=== PATIENT | male | born 1970 | race Caucasian/White ===

== ENCOUNTER 2021-06-20 11:46 | Emergency (ER) | payer BC, SELFPAY ==
--- NOTE | ~2021-06-20 | XR_ITS ---
EXAMINATION: XR hand RT min 3V DATE: 06/20/2021 12:17 INDICATION: Right hand swelling. TECHNIQUE: 3 views of right hand were obtained. COMPARISON: Right wrist radiographs 10/26/2010 FINDINGS: Bone alignment is normal. No fracture. There is mild osteoarthritis of triscaphe joint, fir st carpometacarpal joint, second metacarpophalangeal joint, and second and third distal interphalange al joints. IMPRESSION: 1. Mild polyarticular osteoarthritis. Reviewed, dictated and finalized at location A. Y OPERATOR
[2021-06-20 11:54] VITALS: BP 150/77; PULSE 78; RESP 16; TEMP 37.1; O2SAT 98
--- NOTE | 2021-06-20 12:03 | ED.SKABFB ---
HPI - Skin/Abscess/Foreign Bdy General Chief complaint: Skin/Abscess/Foreign Body Stated complaint: rt hand swollen Time Seen by Provider: 06/20/21 12:03 Source: patient Mode of arrival: ambulatory Limitations: no limitations History of Present Illness HPI narrative: 50-year-old male with history of psoriatic arthritis presented for complaint of right hand redness, pain, swelling for about 3 days. For approximately 1 to 2 months he has noticed a small bump in the palmar aspect at the second MCP joint, but denies known injury or foreign body. Today he states over the last 3 days has become more swollen and painful, limiting his range of motion, he cannot make a fist. Denies numbness, tingling, weakness of the extremity. Takes Humira [id number] x5 years. complaint: rash Related Data Home Medications Medication Instructions Recorded Confirmed adalimumab [Humira(CF) Pen] 40 mg SUBCUT [id number] 06/20/21 06/20/21 amlodipine 10 mg PO DAILY 06/20/21 06/20/21 quinapril 40 mg PO DAILY 06/20/21 06/20/21 Allergies Allergy/AdvReac Type Severity Reaction Status Date / Time No Known Allergies Allergy Verified 06/20/21 12:04 Review of Systems Review of Systems: CONSTITUTIONAL: Denies body aches, fever, chills, or sweats. EYES: Denies visual changes, redness, or discharge. ENT: Denies rhinorrhea, congestion, sore throat, or otalgia. CARDIOVASCULAR: Denies chest pain, palpitations, or edema. RESPIRATORY: Denies cough or dyspnea. GASTROINTESTINAL: Denies abdominal pain, nausea, vomiting, or diarrhea. GENITOURINARY: Denies dysuria or hematuria. SKIN: rash, itching, wounds. MUSCULOSKELETAL: right hand joint pain, swelling NEUROLOGIC: Denies headache, numbness, tingling, or weakness. PSYCH: Denies depression or anxiety. PMFSH Social History Social History Alcohol intake: current Comments At time of signature, I have reviewed and agree with nursing past medical, surgical, social and family history unless otherwise noted. Please see nursing chart for further information. There is no relevant family history pertinent to the presenting complaint Exam Narrative: GENERAL: Well-appearing, well-nourished, and in no acute distress. HEAD: Normocephalic, atraumatic. EYES: PERRLA, conjunctivae clear, and EOMI. ENT: Mucous membranes moist. Oropharynx without edema, erythema or lesions. NECK: Supple. No lymphadenopathy CHEST: Clear to auscultation. No respiratory distress. HEART: Regular rate and rhythm. SKIN: Warm, dry. erythema and edema to right hand dorsal aspect 2nd MCP joint to 1st MCP joint, mild swelling and erythema to palmar aspect; Point tenderness to 2nd MCP, Decreased ROM to hand, unable to make fist or touch 5th digit to thumb, Sensation and pulse intact, cap refill <3sec; No fluctuance or induration; no rash or lesions to skin surface at site of pain NEURO: Alert and oriented x3. PSYCH: Normal mood and affect Course Course Emergency Course: Patient is aware of diagnosis, understands and agrees to treatment plan. Anticipatory guidance given. Patient agrees to follow-up as directed and is aware of reasons to seek care at the emergency department. Portions of this record may have been created with voice recognition software Level of Care: Express Care Visit Vital Signs Vital signs: Vital Signs Temperature 98.7 F 06/20/21 11:54 Pulse Rate 78 06/20/21 11:54 Respiratory Rate 16 06/20/21 11:54 Blood Pressure 150/77 H 06/20/21 11:54 Pulse Oximetry 98 06/20/21 11:54 Temperature 98.7 F 06/20/21 11:54 Pulse Rate 78 06/20/21 11:54 Respiratory Rate 16 06/20/21 11:54 Blood Pressure 150/77 H 06/20/21 11:54 Pulse Oximetry 98 06/20/21 11:54 Reviewed MDM - Skin/Abscess/Foreign Bdy MDM Narrative Medical decision making narrative: Patient looks well, nontoxic, no neurologic signs or symptoms; no headache, photophobia or neck pain; afebril
--- NOTE | 2021-06-20 12:21 | PC.NURSE ---
PT DECLINED ICE FOR COMFORT
== END 2021-06-20 12:40 | disposition home or self-care (01) ==
PROVIDERS: Emergency Provider Nurse Practitioner Family; PCP Internal Medicine
DX: M25.441 Effusion, right hand (principal); I10 Essential (primary) hypertension; L40.50 Arthropathic psoriasis, unspecified
CPT/HCPCS: 73130; 99203; G0463

== ENCOUNTER 2023-03-26 04:03 | Observation (INO) | payer BC, SELFPAY ==
[2023-03-26] VITALS (14 sets, daily range): BP systolic 119–169; BP diastolic 82–104; PULSE 58–81; RESP 10–20; TEMP 36.3–37; O2SAT 88–98
--- NOTE | ~2023-03-26 | CT_ITS ---
EXAMINATION: CT abdomen pelvis wo con DATE: 03/26/2023 05:10 INDICATION: Right flank pain TECHNIQUE: Computed tomography (CT) of the abdomen and pelvis was performed without intravenous contr ast. The dose-length product (DLP) was 489.62 mGy-cm. Automated exposure control and iterative recons truction technique were employed. COMPARISON: 05/12/2017 FINDINGS: Minimal dependent atelectasis is present in the lung bases. The heart size is normal. Punct ate calcifications in an otherwise normal spleen likely represent healed granulomatous disease. The l iver, pancreas, gallbladder, and adrenal glands are normal. There is a 7 mm stone of the proximal rig ht ureter causing moderate hydronephrosis. Nonobstructing stones of the right kidney measure up to 5 mm. Nonobstructing stones of the left kidney measure up to 2 mm. No pathologically enlarged abdominal or pelvic lymph nodes are identified. No free intraperitoneal gas or evidence of bowel obstruction. The appendix is normal. There is a possible focal area of colonic wall thickening in the proximal tra nsverse colon (image 99). There is a small umbilical hernia containing fat. There is mild lumbar spon dylosis. IMPRESSION: 1. 7 mm to the proximal right ureter causing moderate hydronephrosis. 2. Bilateral nonobstructing nephrolithiasis. 3. Possible focal area of wall thickening in the proximal transverse colon. Correlate with colonoscop y history. Reviewed, dictated and finalized at location F. WARE DEVELOPMENT INTERN IMPRESSION: 1. 7 mm to the proximal right ureter causing moderate hydronephrosis. 2. Bilateral nonobstructing nephrolithiasis. 3. Possible focal area of wall thickening in the proximal transverse colon. Cor relate with colonoscopy history.
--- NOTE | ~2023-03-26 | XR_ITS ---
EXAMINATION: XR abdomen/kub 1V DATE: 03/27/2023 08:24 INDICATION: Right abdominal discomfort. Kidney stone. TECHNIQUE: A supine view of the abdomen on 2 radiographs was obtained. COMPARISON: Abdomen radiographs 06/05/2017, CT abdomen and pelvis 03/26/2023 FINDINGS: There are no dilated loops of bowel. There is a 7 mm stone proximal right ureter. There is a right internal ureteral stent in expected position. IMPRESSION: 1. 7 mm stone proximal right ureter with right internal ureteral stent in expected position. Reviewed, dictated and finalized at location A. TENDER IMPRESSION: 1. 7 mm stone proximal right ureter with right internal ureteral stent in expec all position.
--- NOTE | ~2023-03-26 | XR_ITS ---
EXAMINATION: XR retrograde pyelo w/stent RT INDICATION: Right ureteral stone TECHNIQUE: Six intraoperative fluoroscopic images are submitted for review. Total fluoroscopic time i s 20.8 seconds COMPARISON: CT from today FINDINGS: Fluoroscopic images demonstrate placement of a right internal ureteral stent in expected po sition. Please refer to procedure note for full details. IMPRESSION: 1. Right internal ureteral stent in expected position. Please refer to procedure note for full detail s. Reviewed, dictated and finalized at location F. PHONE SALES AGENT IMPRESSION: 1. Right internal ureteral stent in expected position. Please refer to procedur e note for full details.
[2023-03-26 04:57] LABS: Basophils Absolute Auto 0.1 K/mm3 (0.0-0.1); Basophils Percent Auto 0.4 % (0.2-1.2); Eosinophils Percent Auto 0.1 % (0-4.4); Hematocrit 50.7 % (42.0-52.0); Hemoglobin 17.5 g/dL (14.0-18.0); Immature Granulocyte Absolute 0.06 K/mm3 (0.00-0.031); Immature Granulocyte Percent A 0.4 % (0-0.5); Lymphocytes Absolute Auto 1.41 K/mm3 (0.9-3.2); Lymphocytes Percent Auto 8.9 % (18.3-44.2); Mean Corpuscular HGB Conc 34.5 g/dl (32-36); Mean Corpuscular Hemoglobin 31.5 pg (26-34); Mean Corpuscular Volume 91.4 fl (80-100); Mean Platelet Volume 9.9 fl (7.4-10.4); Monocytes Absolute Auto 0.9 K/mm3 (0.1-0.6); Monocytes Percent Auto 5.7 % (2.6-8.5); Neutrophils Absolute Auto 13.5 K/mm3 (1.3-6.7); Neutrophils Percent Auto 84.5 % (45.5-73.1); Platelet Count Result 191 k/mm3 (150-375); Red Blood Count 5.55 M/mm3 (4.6-6.20); Red Cell Distribution Width 11.5 % (11.5-14.5); White Blood Count 15.9 K/mm3 (4.5-10.0)
[2023-03-26] MEDS: MORPHINE SULFATE (*CRX) 4 MG/ML INJ IV PUSH (04:58)
[2023-03-26] MEDS: ONDANSETRON INJ 4 MG/2 ML VIAL IV PUSH (04:58)
[2023-03-26 05:07] LABS: Alanine Aminotransferase 23 U/L (6-50); Albumin Level 4.2 g/dL (3.5-5.1); Alkaline Phosphatase 83 U/L (38-126); Anion Gap 8 mmol/L (8-16); Aspartate Amino Transferase 32 U/L (17-59); Bilirubin,Total 1.4 mg/dL (0.2-1.3); Blood Urea Nitrogen 15 mg/dL (9-20); Calcium 9.3 mg/dL (8.4-10.2); Carbon Dioxide 25 mmol/L (22-30); Chloride 106 mmol/L (98-107); Estimated CRCL calculation 79 ml/min; Estimated Glomerular Filt Rate 58; Glucose 147 mg/dL (65-110); Potassium 2.9 mmol/L (3.4-5.0); Sodium 139 mmol/L (137-145)
--- NOTE | 2023-03-26 07:19 | ED.GENADULT ---
HPI - General Adult General Chief complaint: Urogenital-Male Stated complaint: kidney stone? Time Seen by Provider: 03/26/23 07:17 Source: patient Mode of arrival: ambulatory Limitations: no limitations History of Present Illness HPI narrative: right flank pain, started 3 days ago, gradually getting worse, ASSOCIATED WITH NAUSEA AND VOMITING. HISTORY OF KIDNEY STONE. Related Data Home Medications Medication Instructions Recorded Confirmed adalimumab 40 mg/0.4 mL 40 mg subcut [id number] 06/20/21 06/20/21 subcutaneous pen kit (Humira(CF) Pen) amlodipine 10 mg tablet 10 mg PO DAILY 06/20/21 06/20/21 quinapril 40 mg tablet 40 mg PO DAILY 06/20/21 06/20/21 Allergies Allergy/AdvReac Type Severity Reaction Status Date / Time No Known Allergies Allergy Verified 03/26/23 04:59 Review of Systems Review of Systems: All systems reviewed & are unremarkable except as noted in HPI and below PMFSH Past Medical History Medical History HTN (hypertension) Obesity Rheumatoid arthritis Surgical History Surgical History H/O wrist surgery History of foot surgery Social History Social History Alcohol intake: current Exam Narrative: GENERAL APPEARANCE: WELL-DEVELOPED, WELL-NOURISHED, IN PAIN SKIN: NORMAL COLOR HEAD: NORMOCEPHALIC, NONTRAUMATIC EYES: CLEAR CONJUNCTIVA ENT: OROPHARYNX NORMAL, EARS NORMAL, NOSE NORMAL NECK: SUPPLE, NONTENDER CHEST AND RESPIRATORY: AIRWAY PATENT, NO RESPIRATORY DISTRESS, NO ACCESSORY MUSCLE USE HEART: REGULAR RATE/RHYTHM ABDOMEN: SOFT, MODERATE TENDERNESS RIGHT FLANK, RADIATING TO RIGHT LOWER QUADRANT, NO ORGANOMEGALY, QUIET BOWEL SOUNDS VASCULAR: NORMAL PERIPHERAL PULSES, NORMAL CAPILLARY REFILL. MUSCULOSKELETAL: NORMAL RANGE OF MOTION, NONTENDER BACK NEUROLOGIC: ALERT AND ORIENTED ?3, TREE SPECIALIST IS NORMAL TESTED, NO GROSS MOTOR DEFICIT Course Reevaluation(s) Reevaluation #1: IMPROVING AFTER IV FLUID, DILAUDID AND ZOFRAN IV Date: 03/26/23 Time: 10:13 Consultations Consultation #1: Dr. Cotter Admit to hospitalist Date: 03/26/23 Time: 08:25 Vital Signs Vital signs: Vital Signs Temperature 36.9 C 03/26/23 04:17 Pulse Rate 76 03/26/23 04:17 Respiratory Rate 20 03/26/23 04:17 Blood Pressure 169/104 H 03/26/23 04:17 Pulse Oximetry 98 03/26/23 04:17 Oxygen Delivery Room Air 03/26/23 04:17 Temperature 36.6 C 03/26/23 11:12 Pulse Rate 69 03/26/23 11:55 Respiratory Rate 14 03/26/23 11:55 Blood Pressure 119/92 H 03/26/23 11:55 Pulse Oximetry 96 03/26/23 11:55 Oxygen Delivery Simple Face Mask 03/26/23 11:55 Oxygen Flow Rate 8 03/26/23 11:55 Medical Decision Making [facility] Narrative Medical decision making narrative: PATIENT PRESENTS WITH RIGHT FLANK PAIN, VITAL SIGNS ON ARRIVAL SHOWED BLOOD PRESSURE OF 169/104 HIGH LIKELY SECONDARY TO PAIN PHYSICAL EXAMINATION SHOWED RESTLESS PATIENT IN PAIN, WITH RIGHT FLANK TENDERNESS DIFFERENTIAL DIAGNOSIS INCLUDES KIDNEY STONE, URINARY TRACT INFECTION, APPENDICITIS, CHOLECYSTITIS, CONSTIPATION WORKUP TODAY SHOW WBC OF 15.9, POTASSIUM OF 2.9, TOTAL BILIRUBIN 1.4 OTHERWISE WITHIN NORMAL LIMITS. URINALYSIS SHOWED HEMATURIA. CT ABDOMEN AND PELVIS SHOWED 7 MM STONE RIGHT PROXIMAL URETER IN THE ED PATIENT RECEIVED 1 L OF NORMAL SALINE, 2.5 MG IV, ZOFRAN 4 MG IV, ROCEPHIN 1 G IV, THEN STARTED ON NORMAL SALINE PLUS 40 MEQ OF POTASSIUM TO RUN AT 100 CC/HOURS ADMIT TO HOSPITALIST, DISCUSSED WITH DR. COTTER, THE UROLOGIST ON-CALL Differential Diagnosis Differential Diagn
[2023-03-26] MEDS: SODIUM CHLORIDE 0.9% IV 1,000 ML 999 ML IV CONT (07:31)
[2023-03-26] MEDS: HYDROmorphone HCL INJ (*CRX) 1 MG/ML SYR 0.5 MG IV PUSH ×2 (07:32→09:35)
[2023-03-26] MEDS: ONDANSETRON INJ 4 MG/2 ML VIAL 8 MG IV PUSH (07:32)
[2023-03-26 07:37] LABS: Appearance Urine Clear (Clear); Bacteria Urine None Seen /hpf; Bilirubin Urine Negative (Negative); Blood Urine 2+ (Negative); Color Urine Yellow (Yellow); Glucose Urine UA Negative (Negative); Ketones Urine Trace mg/dL (Negative); Leukocyte Esterase Ur Negative LEU/UL (Negative); Nitrate Urine Negative (Negative); Non Pathogenic Casts 0-2; Protein Urine 1+ mg/dL (Negative); RBC Urine >100 /hpf (0-2); Specific Grav Ur 1.016 (1.001-1.035); Squamous Epithelial Cell Urine None seen /hpf (Few); WBC Urine 0-5 /hpf
[2023-03-26 07:39] LABS: Add Urine Microscopic? YES
--- NOTE | 2023-03-26 08:30 | WPDURCON ---
Assessment and Plan Assessment and plan (1) Right ureteral stone: Code(s): N20.1 - Calculus of ureter Status: Acute Plan Patient with poor pain control due to 7mm right proximal ureteral stone PLAN: -NPO -1g Rocephin in ER -Admit to hospitalist for pain control and management of medical comorbidities -Urologically am planning to add on to OR this AM for Cysto, Right RGP/Stent Urology Consult Note HPI Date Seen: 03/26/23 Primary Care Provider: PHYSICIAN NOT ON STAFF Consult Narrative Narrative: Chan Griffiths is a 52 year old male who presents to the ER with right flank pain. CT scan reveals 7mm right proximal ureteral stone. Pain poorly controlled. Planned for hospitalist admission with urologic intervention. 03/26/2023 CT AP - 7mm right proximal ureteral stone with hydro; bilateral punctate renal stones WBC 16k Cr 1.3 UA + RBC, nit neg, LE neg Review of Systems Review of Systems: All systems reviewed & are unremarkable except as noted in HPI and below PMFSH Social History Social History Alcohol intake: current Meds Home Medications and Allergies Home Medications Medication Instructions Recorded Confirmed Type adalimumab 40 mg/0.4 mL 40 mg subcut [id number] 06/20/21 06/20/21 History subcutaneous pen kit (Humira(CF) Pen) amlodipine 10 mg tablet 10 mg PO DAILY 06/20/21 06/20/21 History amoxicillin 875 mg-potassium 1 tablet PO Q12H 7 days #14 tabs 06/20/21 Rx clavulanate 125 mg tablet methylprednisolone 4 mg tablets in See Rx Instructions PO .COMPLEX 06/20/21 Rx a dose pack (Medrol (Jb)) #21 ea quinapril 40 mg tablet 40 mg PO DAILY 06/20/21 06/20/21 History Allergies Allergy/AdvReac Type Severity Reaction Status Date / Time No Known Allergies Allergy Verified 03/26/23 04:59 Vital Signs Vital Signs - 24 hr 03/26/23 04:17 Temperature 36.9 C Pulse Rate 76 Respiratory Rate 20 Blood Pressure 169/104 H Pulse Oximetry 98 Oxygen Delivery Room Air Exam Narrative: No acute disturss, but is uncomfortable appearing nonlabored breathing Results Labs 03/26/23 04:51 03/26/23 04:51 Labs: Short CBC 03/26/23 Range/Units 04:51 WBC 15.9 H (4.5-10.0) K/mm3 Hgb 17.5 (14.0-18.0) g/dL Hct 50.7 (42.0-52.0) % Plt Count 191 (150-375) k/mm3 BMP 03/26/23 04:51 Sodium 139 Potassium 2.9 L Chloride 106 Carbon Dioxide 25 BUN 15 Creatinine 1.30 Glucose 147 H Calcium 9.3 Liver Function 03/26/23 Range/Units 04:51 Total Bilirubin 1.4 H (0.2-1.3) mg/dL AST 32 (17-59) U/L ALT 23 (6-50) U/L Alkaline Phosphatase 83 (38-126) U/L Albumin 4.2 (3.5-5.1) g/dL Urine 03/26/23 Range/Units 07:24 Urine Color Yellow (Yellow) Urine Appearance Clear (Clear) Urine pH 7.0 (5.0-9.0) Ur Specific [place] 1.016 (1.001-1.035) Urine Protein 1+ H (Negative) mg/dL Urine Glucose (UA) Negative (Negative) mg/dL Imaging My impression: Per HPI
[2023-03-26] MEDS: KCL 40 MEQ/0.9% SOD CHL 1,000 ML 100 ML IV CONT (09:38)
--- NOTE | 2023-03-26 09:39 | W.PM.PROC2 ---
Procedure Note - Detailed Date of Procedure 03/26/23 Pre-op Diagnosis Right ureteral stone Post-op Diagnosis Same Procedure Performed Cystoscopy, right retrograde pyelogram, right ureteral stent Surgeon Ricardo Cotter MD Anesthesia General Findings Radiopaque 7mm proximal right ureteral stone Description of Procedure Prior to the operation an informed consent was obtained.? The patient was brought back to the operative suite and a detailed timeout was performed.? Anesthesia was induced without complication.? The patient was administered IV antibiotics in the prophylactic form.? The patient was positioned in the dorsal lithotomy position with close attention to all pressure points and was prepped and draped in sterile fashion. Pharmaceutical Engineer xray revealed a 6-7mm right proximal ureteral stone, which looked to be below the inferior aspect of the kidney. We began the case using a rigid cystoscope to gain access into the bladder under direct visualization per urethra. Cystoscopy was unremarkable. We turned our attention to the right ureteral orifice and cannulated it using a 5 Qatari open-ended ureteral catheter and sensor wire.? We radiologically confirmed the wire to pass up into the renal pelvis before advancing the ureteral catheter up to get an estimated measurement for our stent size as well as performing a retrograde pyelogram to better delineate the renal pelvis. With our wire in place, we placed a 4.8Fr variable length double-J ureteral stent with no string. We confirmed excellent position fluoroscopically.? The patient's bladder was emptied at the conclusion of the case and he tolerated the procedure well. PLAN: -PACU, floor -Dispo pending pain control -Patient will need outpatient, elective, stone treatment in coming weeks -- he lives in [place], but says he will likely seek an ESWL with stent removal here at [place], when able This note was created with the assistance of voice-recognition software and may contain phonetic errors.
--- NOTE | 2023-03-26 10:25 | WPDHPUPDATE1 ---
History and Physical Update Update Date/Time: 03/26/23 10:25 History and Physical has been reviewed, including an updated exam of the patient. There are NO changes in the patient's condition. Risks, benefits, and alternatives have been discussed and questions answered. Patient agrees to proceed with procedure.
--- NOTE | 2023-03-26 10:38 | WPDANESEPPF ---
Anes - Initial Pre Proc Eval Procedure: Operation Date: 03/26/23 09:30 Proposed Procedures p Cysto, RPG, Stone Ext, Stent Placement - Ricardo Cotter MD Date/Time: 03/26/23 10:38 Surgeon: Ricardo Cotter MD Pre Op Diagnosis: CYSTOSCOPY AND STONE EXTRACTION Patient Data Age: 52 Gender: M Height: 1.88 m Weight: 109 kg Last Vital Signs Temp 36.9 C 03/26/23 04:17 Pulse 76 03/26/23 04:17 Resp 20 03/26/23 04:17 BP 147/96 H 03/26/23 09:46 Pulse Ox 88 L 03/26/23 09:46 O2 Del Method Room Air 03/26/23 04:17 Allergies Allergy/AdvReac Type Severity Reaction Status Date / Time No Known Allergies Allergy Verified 03/26/23 04:59 Home Medications Medication Instructions Recorded Confirmed Type adalimumab 40 mg/0.4 mL 40 mg subcut [id number] 06/20/21 06/20/21 History subcutaneous pen kit (Humira(CF) Pen) amlodipine 10 mg tablet 10 mg PO DAILY 06/20/21 06/20/21 History amoxicillin 875 mg-potassium 1 tablet PO Q12H 7 days #14 tabs 06/20/21 Rx clavulanate 125 mg tablet methylprednisolone 4 mg tablets in See Rx Instructions PO .COMPLEX 06/20/21 Rx a dose pack (Medrol (Jb)) #21 ea quinapril 40 mg tablet 40 mg PO DAILY 06/20/21 06/20/21 History Laboratory Tests 03/26/23 03/26/23 04:51 07:24 WBC 15.9 H K/mm3 (4.5-10.0) RBC 5.55 M/mm3 (4.6-6.20) Hgb 17.5 g/dL (14.0-18.0) Hct 50.7 % (42.0-52.0) MCV 91.4 fl (80-100) MCH 31.5 pg (26-34) MCHC 34.5 g/dl (32-36) RDW 11.5 % (11.5-14.5) Plt Count 191 k/mm3 (150-375) MPV 9.9 fl (7.4-10.4) Immature Gran % (Auto) 0.4 % (0-0.5) Neut % (Auto) 84.5 H % (45.5-73.1) Lymph % (Auto) 8.9 L % (18.3-44.2) Schleicher % (Auto) 5.7 % (2.6-8.5) Eos % (Auto) 0.1 % (0-4.4) Baso % (Auto) 0.4 % (0.2-1.2) Lymph # (Auto) 1.41 K/mm3 (0.9-3.2) Schleicher # (Auto) 0.9 H K/mm3 (0.1-0.6) Eos # (Auto) 0.0 K/mm3 (0-0.3) Baso # (Auto) 0.1 K/mm3 (0.0-0.1) Abs Immat Gran (auto) 0.06 H K/mm3 (0.00-0.031) Absolute Neuts (auto) 13.5 H K/mm3 (1.3-6.7) Absolute Nucleated RBC 0.0 K/mm3 (0.0-0.012) Nucleated RBC % 0.0 % (0.0-0.2) Sodium 139 mmol/L (137-145) Potassium 2.9 L mmol/L (3.4-5.0) Chloride 106 mmol/L (98-107) Carbon Dioxide 25 mmol/L (22-30) Anion Gap 8 mmol/L (8-16) BUN 15 mg/dL (9-20) Creatinine 1.30 mg/dL (0.7-1.3) Estim Creat Clear Calc 79 ml/min Estimated GFR 58 L (59 - ) Glucose 147 H mg/dL (65-110) Calcium 9.3 mg/dL (8.4-10.2) Total Bilirubin 1.4 H mg/dL (0.2-1.3) AST 32 U/L (17-59) ALT 23 U/L (6-50) Alkaline Phosphatase 83 U/L (38-126) Total Protein 7.0 g/dL (6.3-8.2) Albumin 4.2 g/dL (3.5-5.1) Urine Color Yellow (Yellow) Urine Appearance Clear (Clear) Urine pH 7.0 (5.0-9.0) Ur Specific [place] 1.016 (1.001-1.035) Urine Protein 1+ H mg/dL (Negative) Urine Glucose (UA) Negative mg/dL (Negative) Urine Ketones Trace H mg/dL (Negative) Ur Blood (Man) 2+ H (Negative) Urine Nitrate Negative (Negative) Urine Bilirubin Negative (Negative) Urine Urobilinogen 1.0 mg/dL (<2.0) Leukocyte Esterase Rfl Negative CURLY/UL (Negative) Urine RBC >100 H /hpf (0-2) Urine WBC 0-5 /hpf Ur Squamous Epith Cells None seen /hpf (Few) Urine Bacteria None seen /hpf Urine Casts 0-2 Patient hx anesthesia problems: none Family hx anesthesia problems: none Results Review: All pre-operative results and documents have been reviewed as part of the pre-operative evaluation. [facility] Past Medical History Medical History (Updated 03/26/23 @ 10:39 by Toni Burleson MD) HTN (hyperten
--- NOTE | 2023-03-26 16:04 | PC.NURSE ---
Patient's home dose of Kathryn is in the Med room fridge with patient label attached. Patient is due for shot today. Waiting for med rec to send down to pharmacy.
--- NOTE | 2023-03-26 17:06 | ADMGEN ---
This patient, Chan Griffiths, was admitted to 3 [facility] Surg Room 332-01. Patient/family oriented to hospital policies and general routines including ID bracelet, bed and alarms, visiting hours, pain management, procedures, bathroom and other care routines, personal items, smoking policy, room service/diet, and visiting hours. Information on how to activate the Rapid Response Team has been discussed. Patient/Family are encouraged to report perceived risks to care and to ask questions if they do not understand what they are told or what they should do.
--- NOTE | 2023-03-26 23:06 | PM.IMHP ---
H&P: HPI History of Present Illness Date/Time: 03/26/23 23:06 Chief Complaint: Flank Pain Narrative: 52 y/o M presents here with flank pain with PMH of kidney stones, HTN, and RA. Patient presented to the emergency department with 2-3 days of right-sided flank pain. Flank pain described as sharp and radiating into his anterior abdomen. Also experiencing concurrent nausea, vomiting, fever, chills, and body aches. States that these symptoms are similar to his previous kidney stones. Last episode of kidney stones was 2 months ago, seen at [facility]. Patient had stone stuck in ureter and had stone removal performed. States over the last year so he has made a lot of dietary changes to try to prevent recurrence - cessation of alcohol, only drinking water, etc. reports strong familial history of kidney stones. ED workup revealed CT findings which showed a 7 mm stone causing moderate hydronephrosis and nonobstructing stones of the right kidney measuring to 5 mm, as well as a nonobstructing stone of the left kidney measuring up to 2 mm. Urology was consulted and recommended cysto and right RGP/stent. Patient is now post procedure with successful placement of right ureteral stent. Patient now reports resolution of nausea, vomiting, fever, chills, and body aches. Partial resolution of right flank pain, still present and described as twinging . Review of Systems Review of Systems: All systems reviewed & are unremarkable except as noted in HPI and below PMFSH Past Medical History Medical History (Updated 03/26/23 @ 23:25 by Altagracia Nichols APRN) HTN (hypertension) Kidney stone Obesity Rheumatoid arthritis Surgical History Surgical History H/O wrist surgery History of foot surgery Social History Social History Smoking status: Never smoker Alcohol intake: current Lack of Transportation: No Lack of Food: Never True Current Housing: I Have Housing Concerned About Future Housing: No Difficulty Paying Gas/Electric Bills: No Difficulty Paying for Meds: No Currently Unemployed: No Education: Associate Degree Difficulty w/ Childcare or Family Care: No Spiritual care concerns: No Meds Home Medications and Allergies Home Medications Medication Instructions Recorded Confirmed Type adalimumab 40 mg/0.4 mL 40 mg subcut [id number] 06/20/21 03/26/23 History subcutaneous pen kit (Humira(CF) Pen) amlodipine 10 mg tablet 10 mg PO DAILY 06/20/21 03/26/23 History lisinopril 40 mg PO DAILY 03/26/23 03/26/23 History Allergies Allergy/AdvReac Type Severity Reaction Status Date / Time No Known Allergies Allergy Verified 03/26/23 04:59 Vital Signs Vital Signs - 24 hr 03/26/23 04:17 03/26/23 09:35 03/26/23 09:46 Temperature 98.4 F Pulse Rate 76 Respiratory Rate 20 Blood Pressure 169/104 H 160/94 H 147/96 H Pulse Oximetry 98 92 88 L Oxygen Delivery Room Air Oxygen Flow Rate 03/26/23 11:12 03/26/23 11:25 03/26/23 11:40 Temperature 97.8 F Pulse Rate 68 58 L 62 Respiratory Rate 10 L 10 L 10 L Blood Pressure 120/82 127/91 H 126/92 H Pulse Oximetry 96 97 97 Oxygen Delivery Simple Face Mask Simple Face Mask Simple Face Mask Oxygen Flow Rate 8 8 8 03/26/23 11:55 03/26/23 12:10 03/26/23 12:25 Temperature Pulse Rate 69 73 73 Respiratory Rate 14 12 12 Blood Pressure 119/92 H 139/92 H 149/84 H Pulse Oximetry 96 92 94 Oxygen Delivery Simple Face Mask Nasal Cannula Nasal Cannula Oxygen Flow Rate 8 3 3 03/26/23 12:35 03/26/23 09:59 03/26/23 13:38 Temperature 97.3 F L 97.6 F Pulse Rate 81 74 79 Respiratory Rate 18 18 16 Blood Pressure 146/89 H 165/98 H 142/85 H Pulse Oximetry 97 95 93 Oxygen Delivery Nasal Cannula Oxygen Flow Rate 3 03/26/23 20:00 Temperature Pulse Rate Respiratory Rate Blood Pressure Pulse Oximetry 93
--- NOTE | 2023-03-26 23:53 | PC.NURSE ---
pt home dose of Humara due 03/26/23, pt requested to not take it this dose, aware
[2023-03-27] MEDS: POTASSIUM CHLORIDE 20 MEQ ER TABLET 40 MEQ PO (00:01)
[2023-03-27] MEDS: HYDROcodone/acetaminophen (*CRX) 5-325 MG TABLET 1 TAB PO ×2 (00:04→08:54)
[2023-03-27 05:45] VITALS: BP 148/94; PULSE 76; RESP 20; TEMP 36; O2SAT 95
[2023-03-27 07:13] LABS: Basophils Absolute Auto 0.1 K/mm3 (0.0-0.1); Basophils Percent Auto 0.7 % (0.2-1.2); Eosinophils Absolute Auto 0.1 K/mm3 (0-0.3); Eosinophils Percent Auto 1.1 % (0-4.4); Hemoglobin 16.2 g/dL (14.0-18.0); Immature Granulocyte Absolute 0.02 K/mm3 (0.00-0.031); Immature Granulocyte Percent A 0.2 % (0-0.5); Lymphocytes Percent Auto 33.6 % (18.3-44.2); Mean Corpuscular HGB Conc 33.8 g/dl (32-36); Mean Corpuscular Hemoglobin 31.8 pg (26-34); Mean Corpuscular Volume 94.1 fl (80-100); Mean Platelet Volume 9.7 fl (7.4-10.4); Monocytes Absolute Auto 0.9 K/mm3 (0.1-0.6); Monocytes Percent Auto 9.4 % (2.6-8.5); Neutrophils Absolute Auto 5.4 K/mm3 (1.3-6.7); Platelet Count Result 145 k/mm3 (150-375); Red Cell Distribution Width 11.6 % (11.5-14.5); White Blood Count 9.8 K/mm3 (4.5-10.0)
[2023-03-27 07:32] LABS: Anion Gap 4 mmol/L (8-16); Blood Urea Nitrogen 12 mg/dL (9-20); Calcium 8.7 mg/dL (8.4-10.2); Carbon Dioxide 33 mmol/L (22-30); Chloride 102 mmol/L (98-107); Estimated CRCL calculation 85 ml/min; Estimated Glomerular Filt Rate > 60; Glucose 87 mg/dL (65-110); Sodium 139 mmol/L (137-145)
--- NOTE | 2023-03-27 07:50 | WPDUROPN2 ---
Progress Note: A&P Assessment and Plan (1) Right ureteral stone: Code(s): N20.1 - Calculus of ureter Status: Acute Assessment and Plan: Can be discharged home today from urologic perspective. We will arrange outpatient stone management. May be able to do in [place] tomorrow or at this hospital at the end of the week Subjective Subjective Date/Time Seen: 03/27/23 07:50 Review of Systems Review of Systems: Tolerating stent. No other complaints Exam Narrative: No acute distress Normal breathing Alert orient x3 Objective Data Vital Signs Vital Signs: Vital Signs - 24 hr 03/26/23 09:35 03/26/23 09:46 03/26/23 11:12 Temperature 97.8 F Pulse Rate 68 Respiratory Rate 10 L Blood Pressure 160/94 H 147/96 H 120/82 Pulse Oximetry 92 88 L 96 Oxygen Delivery Simple Face Mask Oxygen Flow Rate 8 03/26/23 11:25 03/26/23 11:40 03/26/23 11:55 Temperature Pulse Rate 58 L 62 69 Respiratory Rate 10 L 10 L 14 Blood Pressure 127/91 H 126/92 H 119/92 H Pulse Oximetry 97 97 96 Oxygen Delivery Simple Face Mask Simple Face Mask Simple Face Mask Oxygen Flow Rate 8 8 8 03/26/23 12:10 03/26/23 12:25 03/26/23 12:35 Temperature Pulse Rate 73 73 81 Respiratory Rate 12 12 18 Blood Pressure 139/92 H 149/84 H 146/89 H Pulse Oximetry 92 94 97 Oxygen Delivery Nasal Cannula Nasal Cannula Nasal Cannula Oxygen Flow Rate 3 3 3 03/26/23 09:59 03/26/23 13:38 03/26/23 20:00 Temperature 97.3 F L 97.6 F Pulse Rate 74 79 Respiratory Rate 18 16 Blood Pressure 165/98 H 142/85 H Pulse Oximetry 95 93 93 Oxygen Delivery Nasal Cannula Oxygen Flow Rate 3 03/26/23 22:00 03/27/23 05:45 Temperature 98.6 F 96.8 F L Pulse Rate 70 76 Respiratory Rate 18 20 Blood Pressure 145/90 H 148/94 H Pulse Oximetry 97 95 Oxygen Delivery Oxygen Flow Rate Intake/Output Intake/Output: Intake & Output 03/24/23 03/25/23 03/26/23 03/27/23 23:59 23:59 23:59 23:59 Intake Total 1270 350 Output Total 300 1250 Balance 970 -900 Meds/Results Medications: Active Medications Generic Name Dose Route Start Last Admin Trade Name Freq PRN Reason Stop Dose Admin Acetaminophen 500 mg 03/26/23 23:26 Acetaminophen 500 Mg Tablet PO Q6H PRN Mild Pain (1-3) or Fever Hydrocodone Bitart/Acetaminophen 1 tab 03/26/23 23:26 03/27/23 00:04 Hydrocodone/Acetaminophen (*Crx) 5-325 Mg Tablet PO 1 tab Q4H PRN Administration Pain Rated 4-6 Amlodipine Besylate 10 mg 03/27/23 09:00 Amlodipine Besylate 5 Mg Tablet PO DAILY [facility] Hydromorphone HCl 0.5 mg 03/26/23 08:17 03/26/23 09:35 Hydromorphone Hcl Inj (*Crx) 1 Mg/Ml Syr IV PUSH 0.5 mg Q4H PRN Administration Pain Rated 7-10 Lisinopril 40 mg 03/27/23 09:00 Lisinopril 20 Mg Tablet PO QAM [facility] Home Med ( 40 each 03/26/23 23:35 03/26/23 23:52 Adalimumab [Humira( SUB-Q 04/25/23 23:34 Not Given Cf) Pen] 40 Mg/0.4 [id number] [facility] Ml Pen Injector Kit) Radiology Results: ITS Impressions Abdomen/Pelvis CT 03/26/23 06:20 IMPRESSION: 1. 7 mm to the proximal right ureter causing moderate hydronephrosis. 2. Bilateral nonobstructing nephrolithiasis. 3. Possible focal area of wall thickening in the proximal transverse colon. Correlate with colonoscopy history. Retrograde Pyelogram 03/26/23 13:07 IMPRESSION: 1. Right internal ureteral stent in expected position. Please refer to procedure note for full details. Labs Labs: Laboratory Results - last 24 hr 03/27/23 07:02 WBC 9.8 RBC 5.10 Hgb 16.2 Hct 48.0 MCV 94.1 MCH 31.8 MCHC 33.8 RDW 11.6 Plt Count 145 L MPV 9.7 Immature Gran % (Auto) 0.2 Neut % (Auto) 55.0 Lymph % (Auto) 33.6 [place] % (Auto) 9.4 H Eos % (Auto) 1.1 Baso % (Auto) 0.7 Lymph # (Auto) 3.30 H [place] # (Auto) 0.9 H Eos # (Auto) 0.1 Baso # (Auto) 0.1 Abs Immat Gran (auto) 0.02 Absolute Neuts (auto) 5.
[2023-03-27] MEDS: POTASSIUM CHLORIDE 20 MEQ ER TABLET 60 MEQ PO (08:52)
[2023-03-27 08:53] VITALS: O2SAT 94
[2023-03-27] MEDS: amLODIPine BESYLATE 5 MG TABLET 10 MG PO (08:53)
[2023-03-27] MEDS: lisinopriL 20 MG TABLET 40 MG PO (08:53)
[2023-03-27 12:15] VITALS: BP 158/82; PULSE 91; RESP 20; TEMP 37; O2SAT 94
[2023-03-27] MEDS: ONDANSETRON INJ 4 MG/2 ML VIAL IV PUSH (12:25)
[2023-03-27 13:28] LABS: Glucose Point of Care 108 mg/dl (65-105)
[2023-03-27 14:00] VITALS: BP 140/95; PULSE 61; RESP 16; TEMP 36.3; O2SAT 96
--- NOTE | 2023-03-27 14:24 | PM.IMPN ---
Progress Note: A&P Assessment and Plan (1) Right ureteral stone: Code(s): N20.1 - Calculus of ureter Status: Acute Assessment and Plan: UA: 1+ protein, trace ketones, 2+ blood, greater than 100 RBC. given 1G of ceftriaxone in ED. CT showed 7 mm stone to the proximal right ureter causing moderate hydronephrosis and bilateral nonobstructing nephrolithiasis. Urology consulted patient taken to the OR for cystoscopy, right retrograde pyelogram, and right ureteral stent placement. Recommended patient follow up outpatient for elective stone treatment. Planned 03/31/23. Continue pain control. (2) Acute hypokalemia: Code(s): E87.6 - Hypokalemia Status: Acute Assessment and Plan: 03/26/23 Potassium 2.9. Likely secondary to nausea and vomiting. 40 IVPB and 40 mg PO of potassium 03/27/23 It is potassium 3.0. Given 60 mEq p.o. potassium. Recheck Potassium of 3.0. Ordered 40 mEq of IV potassium. Subjective Date/time seen: 03/27/23 14:24 Interval history: Patient doing well today. He still has some mild abdominal discomfort and discomfort with urination but much better than yesterday. Discussed with him the concerns for his potassium. Potassium will need to be replenish prior to discharge. Patient understood this. Got a call from the nurse and stated that the patient was having increased nausea as well as numbness and tingling in bilateral hands. Patient was given some Zofran for this. Exam Narrative: GENERAL: Comfortable, no acute distress HENMT: moist mucous membranes EYES: EOM intact b/l NECK: no lymphadenopathy RESPIRATORY: clear to auscultation CARDIO: RRR GI: soft, nontender, bowel sounds present SKIN: no rashes EXTREMITIES: no edema, redness or tenderness Objective Data Vital Signs Vital Signs: Vital Signs - 24 hr 03/26/23 20:00 03/26/23 22:00 03/27/23 05:45 Temperature 98.6 F 96.8 F L Pulse Rate 70 76 Respiratory Rate 18 20 Blood Pressure 145/90 H 148/94 H Pulse Oximetry 93 97 95 Oxygen Delivery Nasal Cannula Oxygen Flow Rate 3 03/27/23 08:53 03/27/23 12:15 03/27/23 14:00 Temperature 98.6 F 97.4 F L Pulse Rate 91 61 Respiratory Rate 20 16 Blood Pressure 158/82 H 140/95 H Pulse Oximetry 94 94 96 Oxygen Delivery Room Air Oxygen Flow Rate Intake/Output Intake/Output: Intake & Output 03/24/23 03/25/23 03/26/23 03/27/23 23:59 23:59 23:59 23:59 Intake Total 1270 649 Output Total 300 1250 Balance 970 -601 Meds/Results Medications: Active Medications Generic Name Dose Route Start Last Admin Trade Name Freq PRN Reason Stop Dose Admin Acetaminophen 500 mg 03/26/23 23:26 Acetaminophen 500 Mg Tablet PO Q6H PRN Mild Pain (1-3) or Fever Hydrocodone Bitart/Acetaminophen 1 tab 03/26/23 23:26 03/27/23 08:54 Hydrocodone/Acetaminophen (*Crx) 5-325 Mg Tablet PO 1 tab Q4H PRN Administration Pain Rated 4-6 Amlodipine Besylate 10 mg 03/27/23 09:00 03/27/23 08:53 Amlodipine Besylate 5 Mg Tablet PO 10 mg DAILY DANIELA Administration Hydromorphone HCl 0.5 mg 03/26/23 08:17 03/26/23 09:35 Hydromorphone Hcl Inj (*Crx) 1 Mg/Ml Syr IV PUSH 0.5 mg Q4H PRN Administration Pain Rated 7-10 Potassium Chloride 40 meq/ 520 mls @ 130 mls/hr 03/27/23 13:56 Sodium Chloride IVPB 03/27/23 17:55 ONCE ONE Lisinopril 40 mg 03/27/23 09:00 03/27/23 08:53 Lisinopril 20 Mg Tablet PO 40 mg QAM DANIELA Administration Home Med ( 40 each 03/26/23 23:35 03/26/23 23:52 Adalimumab [Humira( SUB-Q 04/25/23 23:34 Not Given Cf) Pen] 40 Mg/0.4 [id number] DANIELA Ml Pen Injector Kit) Ondansetron HCl 4 mg 03/27/23 12:08 03/27/23 12:25 Ondansetron Inj 4 Mg/2 Ml Vial IV PUSH 4 mg Q4H PRN Administration Nausea And Vomiting Radiology Results: ITS Impressions Abdomen/Pelvis CT 03/26/23 06:20 IMPRESSION: 1. 7 mm to the proximal right ureter causing moderate hy
[2023-03-27] MEDS: POTASSIUM CHLORIDE INJ 40 MEQ in SODIUM CHLORIDE 0.9% IV 500 ML 130 MEQ IVPB (15:10)
[2023-03-27] MEDS: ACETAMINOPHEN 500 MG TABLET PO ×2 (15:16→15:45)
--- NOTE | 2023-03-27 15:50 | P.PNAN_ITS ---
Anes - Prog Note Post-Op Date/Time: 03/27/23 15:50 Cardiovascular status: normal Respiratory status: normal Airway patency: baseline Mental status: baseline Post-Op hydration status: normal Vital Signs: Last Vital Signs Temp 36.3 C L 03/27/23 14:00 Pulse 61 03/27/23 14:00 Resp 16 03/27/23 14:00 BP 140/95 H 03/27/23 14:00 Pulse Ox 96 03/27/23 14:00 O2 Del Method Room Air 03/27/23 08:53 O2 Flow Rate 3 03/26/23 20:00 Pain Score (VAS): 06/24 I/O: Intake & Output 03/26/23 03/27/23 03/27/23 23:59 07:59 15:59 Intake Total 220 350 299 Output Total 300 1250 Balance -80 -900 299 Laboratory Tests 03/27/23 07:02 03/27/23 12:55 03/27/23 03/27/23 03/27/23 07:02 07:02 12:19 WBC 9.8 RBC 5.10 Hgb 16.2 Hct 48.0 MCV 94.1 MCH 31.8 MCHC 33.8 RDW 11.6 Plt Count 145 L MPV 9.7 Immature Gran % (Auto) 0.2 Neut % (Auto) 55.0 Lymph % (Auto) 33.6 [place] % (Auto) 9.4 H Eos % (Auto) 1.1 Baso % (Auto) 0.7 Lymph # (Auto) 3.30 H [place] # (Auto) 0.9 H Eos # (Auto) 0.1 Baso # (Auto) 0.1 Abs Immat Gran (auto) 0.02 Absolute Neuts (auto) 5.4 Absolute Nucleated RBC 0.0 Nucleated RBC % 0.0 Sodium 139 Potassium 3.0 L 3.0 L Chloride 102 Carbon Dioxide 33 H Anion Gap 4 L BUN 12 Creatinine 1.20 Estim Creat Clear Calc 85 Estimated GFR > 60 Glucose 87 POC Capillary Glucose 108 H Calcium 8.7 03/27/23 12:55 WBC RBC Hgb Hct MCV MCH MCHC RDW Plt Count MPV Immature Gran % (Auto) Neut % (Auto) Lymph % (Auto) [place] % (Auto) Eos % (Auto) Baso % (Auto) Lymph # (Auto) [place] # (Auto) Eos # (Auto) Baso # (Auto) Abs Immat Gran (auto) Absolute Neuts (auto) Absolute Nucleated RBC Nucleated RBC % Sodium Potassium 3.0 L Chloride Carbon Dioxide Anion Gap BUN Creatinine Estim Creat Clear Calc Estimated GFR Glucose POC Capillary Glucose Calcium Post-procedural complaints: none Patient Feedback: Patient satisfied with anesthetic care.
[2023-03-27 22:00] VITALS: BP 155/99; PULSE 74; RESP 20; TEMP 36.2; O2SAT 96
[2023-03-27 22:57] LABS: Potassium 3.2 mmol/L (3.4-5.0)
[2023-03-28] MEDS: POTASSIUM CHLORIDE 20 MEQ ER TABLET 40 MEQ PO (04:01)
[2023-03-28 04:25] VITALS: BP 139/90; PULSE 64; RESP 18; TEMP 36.1; O2SAT 98
[2023-03-28 08:05] LABS: Anion Gap 3 mmol/L (8-16); Blood Urea Nitrogen 12 mg/dL (9-20); Calcium 8.8 mg/dL (8.4-10.2); Carbon Dioxide 29 mmol/L (22-30); Chloride 106 mmol/L (98-107); Estimated CRCL calculation 90 ml/min; Estimated Glomerular Filt Rate > 60; Glucose 102 mg/dL (65-110); Potassium 3.4 mmol/L (3.4-5.0); Sodium 138 mmol/L (137-145)
--- NOTE | 2023-03-28 08:37 | PM.DS ---
DS: Admitting Diagnosis Discharge Date 03/28/23 Admitting Diagnosis kidney stone DS: Discharge Diagnosis Discharge Diagnosis (1) Right ureteral stone: Code(s): N20.1 - Calculus of ureter Status: Acute (2) Acute hypokalemia: Code(s): E87.6 - Hypokalemia Status: Acute DS: Summary Hospital Course Hospital Course: This is a 52-year-old male with a past medical history of hypertension and RA the presented to the ED on 03/26/2023 due to right-sided flank pain. Pain was sharp in nature and radiated to the anterior abdomen. He has also had associated nausea, vomiting, fever chills and body aches. He has had history of kidney stones in the past. Patient did have to have stone surgically removed. CT abdomen pelvis revealed 7 mm stone causing moderate hydronephrosis and nonobstructing stones of the right kidney measuring to 5 mm, as well as a nonobstructing stone of the left kidney measuring up to 2 mm.? Urology was consulted and cysto and right RGP/stent procedure performed.? urology recommending outpatient follow-up with them. On presentation patient was found to have a potassium of 2.8 and this was replenished With 40 p.o. and 40 IV PP potassium. Recheck of potassium was 3.0. Patient was given 60 mEq p.o. potassium and recheck was again 3.0. Discussed with the patient that it is important to increased potassium due to the risk of cardiac events. Had long discussion with patient and his about the importance of this and after approximately 40 minute conversation patient reluctantly agreed to continue treatment to increased potassium. Another 40 mEq of IV potassium was given and repeat potassium in the morning was 3.4. Advised the patient follow-up with labs in approximately 1 week as well as a follow-up with primary care provider. His labs and vital signs are stable and he is medically clear for discharge at this time. Time Spent with Patient Time attestation: Total time spent providing and/or coordinating discharge services: Exam Narrative: GENERAL: Comfortable, no acute distress HENMT: moist mucous membranes EYES: EOM intact b/l NECK: no lymphadenopathy RESPIRATORY: clear to auscultation CARDIO: RRR GI: soft, nontender, bowel sounds present SKIN: no rashes EXTREMITIES: no edema, redness or tenderness DS: Data Data Completed and Pending Labs on day of discharge: Labs from last 24 hours 03/28/23 03/27/23 03/27/23 07:19 22:39 12:55 Sodium 138 Potassium 3.4 3.2 L 3.0 L Chloride 106 Carbon Dioxide 29 Anion Gap 3 L BUN 12 Creatinine 1.00 Estim Creat Clear Calc 90 Estimated GFR > 60 Glucose 102 POC Capillary Glucose Calcium 8.8 03/27/23 03/27/23 12:19 07:02 Sodium Potassium 3.0 L Chloride Carbon Dioxide Anion Gap BUN Creatinine Estim Creat Clear Calc Estimated GFR Glucose POC Capillary Glucose 108 H Calcium Discharge Plan Discharge Attending physician on discharge: Jay Sosa Consulting providers: Ricardo Cotter Discharging Clinician: Gisella Rogers Patient Disposition: Home, Self-Care Activity: as tolerated Diet: regular Discharge Instructions: Discharge disposition: Close follow-up with Urology per their recommendations. Recommend follow-up labs in 7-10 days. Take medications as prescribed Monitor blood pressures Avoid social areas, you wear a mask when in social settings Encouraged to continue with yearly vaccinations Return to the emergency department if he developed sudden shortness of breath, chest pain, nausea, vomiting, upset stomach or intractable diarrhea Return to the emergency department if you develop fever greater than 100.4 Follow-up with the primary care physician within 1-[address] [facility] for your healthcare needs Stand Alone Forms: General Discharge Instructions Follow-up/Referrals: Ricardo Cotter MD [Physician] -
== END 2023-03-28 10:50 | disposition home or self-care (01) ==
LOC: ANHED 08:27 → ANHSURGERY 11:10 → ANHED 12:52 → ANHSURGERY 12:52 → ANH3MEDSUR 12:56
PROVIDERS: Emergency Medicine; Internal Medicine Critical Care Medicine; Student in an Organized Health Care Education/Training Program; Urology; Admitting Provider General Practice; Emergency Provider Emergency Medicine; Visit Provider Family Medicine
PROC: (CPT 52352; principal; 2023-03-26 09:30)
DX: N13.2 Hydronephrosis with renal and ureteral calculous obstruction (principal); E87.6 Hypokalemia; I10 Essential (primary) hypertension; M06.9 Rheumatoid arthritis, unspecified; Z79.899 Other long term (current) drug therapy
CPT/HCPCS: 52332; 36415; 74018; 74176; 74420; 80048; 80053; 81001; 82948; 84132; 85025; 96361; 96365; 96375; 96376; 99285; A9270; C1758; C1769; C2617; G0378; J0696; J1170; J2250; J2270; J2405; J2704; J3010; J3480; J7030; J7040; J7120; Q9966

== ENCOUNTER 2023-03-31 04:27 | Day surgery (SDC) | payer BC, SELFPAY ==
--- NOTE | 2023-03-29 07:20 | P.HP_ITS ---
History of Present Illness History of Present Illness Consent: Risks, benefits, and alternatives have been discussed and questions answered. Patient agrees to proceed with procedure. Chief complaint: Rt Ureteral Stone Narrative: Chan Griffiths is a 52 year old male admitted approximately 2 weeks ago with intractable right flank pain. Imaging demonstrated a 7 mm calcified obstructing right proximal ureteral stone. A ureteral stent was placed by my partner and he now presents for definitive intervention including right ESWL. He is aware the risks including, but not limited to, hematuria, need for additional procedures and perinephric hematoma Review of Systems Review of Systems: All systems reviewed & are unremarkable except as noted in HPI and below PMFSH Past Medical History Medical History HTN (hypertension) Kidney stone Obesity Rheumatoid arthritis Surgical History Surgical History H/O wrist surgery History of foot surgery Social History Social History Smoking status: Never smoker Alcohol intake: current Lack of Transportation: No Lack of Food: Never True Current Housing: I Have Housing Concerned About Future Housing: No Difficulty Paying Gas/Electric Bills: No Difficulty Paying for Meds: No Currently Unemployed: No Education: Associate Degree Difficulty w/ Childcare or Family Care: No Spiritual care concerns: No Meds Home Medications and Allergies Home Medications Medication Instructions Recorded Confirmed Type adalimumab 40 mg/0.4 mL 40 mg subcut [id number] 06/20/21 03/26/23 History subcutaneous pen kit (Humira(CF) Pen) Allergies Allergy/AdvReac Type Severity Reaction Status Date / Time No Known Allergies Allergy Verified 03/26/23 04:59 Exam Const: General: no acute distress Resp: Effort & Inspection: normal respiratory effort GI: Inspection: non-distended GI Palp: No abdominal tenderness and No Guarding due to palpation present (GI) Auscultation: normal bowel sounds Assessment and Plan Assessment and plan (1) Right ureteral stone: Code(s): N20.1 - Calculus of ureter Status: Acute Assessment and Plan: * Right ESWL
[2023-03-29 09:22] VITALS: BMI 30.8
--- NOTE | 2023-03-29 09:27 | PC.NURSE ---
Report to the Outpatient Waiting Room, entrance under the green pavilion located off [facility], at time 1100 on date 03/31/23. Planned Procedure Time: 1300. Time changes happen often and if your time is changed the preop area will call you the afternoon before. - You and your visitor will be asked to self-screen and do not enter if you have any COVID symptoms. - A mask is optional within the hospital at this time. Patients may have clear liquids (water, carbonated beverages, clear teas, apple juice) until 3 hours prior to surgery with a maximum of 20 ounces. - No food from midnight until time of surgery Take the following medications with a SIP of water the morning of surgery: NONE DO NOT STOP ANY OF YOUR OTHER PRESCRIPTION MEDICATIONS PRIOR TO SURGERY ?EXCEPT THE FOLLOWING Medications to discontinue per physician: N/A Date to take last dose: N/A Please no make-up, nail citizen of [place], hairspray, perfume, deodorant, or body powder the day of surgery. No jewelry (including any body piercings) or valuables the day of surgery, leave them at home. Please take a shower or bath the night before, or the morning of, surgery with an antibacterial soap. Wear comfortable, loose fitting clothing. - Jewelry must be removed prior to entering the operating room. Rings and piercings that are not removed may be cut off. - The hospital will not accept responsibility for valuables. - Please leave all valuables, including medications, at home the day of surgery. If you are going home after surgery, a licensed maintenance truck driver must drive you home. - NO public transportation without another adult if you receive anesthesia. - We recommend that an adult stay with you for 24 hours following discharge. - We also recommend that you do not drive, make important decision, drink alcoholic beverages, or take any drugs that were not prescribed by your health care provider for at least 24 hours after your discharge time. Follow any additional instructions given to you from your surgeon. If you or anyone in your household have experienced Covid symptoms in the past week, please notify your surgeon or the nurse liaison at the phone number below for possible testing. Telephone instructions given to PT - MARIO CAPONE and asked if any additional questions and then verbalized understanding. Patient advised to call surgeon office or pre surgery nurse liaison [phone] if any additional questions.
[2023-03-31] VITALS (8 sets, daily range): BP systolic 113–158; BP diastolic 85–99; PULSE 57–68; RESP 13–18; TEMP 36.2–37.1; O2SAT 95–99
--- NOTE | ~2023-03-31 | XR_ITS ---
EXAMINATION: XR abdomen/kub 1V INDICATION: Right-sided urolithiasis TECHNIQUE: Supine views of the abdomen were obtained on 2 radiographs. COMPARISON: 03/27/2023 FINDINGS: A right internal ureteral stent is in expected position. There is a 9 mm stone adjacent to the proximal aspect of the stent at the level of the right L4 transverse process. No additional uroli thiasis is identified. The bowel gas pattern is normal. IMPRESSION: 1. 9 mm stone of the proximal right ureter adjacent to the right internal ureteral stent which is in expected position. Reviewed, dictated and finalized at location B. WALL DRILL OPERATOR IMPRESSION: 1. 9 mm stone of the proximal right ureter adjacent to the right internal urete ral stent which is in expected position.
--- NOTE | 2023-03-31 06:27 | WPDHPUPDATE1 ---
History and Physical Update Update Date/Time: 03/31/23 06:27 History and Physical has been reviewed, including an updated exam of the patient. There are NO changes in the patient's condition. Risks, benefits, and alternatives have been discussed and questions answered. Patient agrees to proceed with procedure.
[2023-03-31] MEDS: LACTATED RINGERS 1,000 ML 30 ML IV CONT (11:44)
--- NOTE | 2023-03-31 12:01 | P.PNAN_ITS ---
Anes - Initial Pre Proc Eval Procedure: Operation Date: 03/31/23 13:00 Proposed Procedures p Right Extracorporeal Shock Wave Lithotripsy - Timoteo Samuels MD Date/Time: 03/31/23 12:01 Surgeon: Timoteo Samuels MD Pre Op Diagnosis: Rt Ureteral Stone Patient Data Age: 52 Gender: M Height: 1.88 m Weight: 101.6 kg Last Vital Signs Temp 37.1 C 03/31/23 11:29 Pulse 68 03/31/23 11:29 Resp 18 03/31/23 11:29 BP 143/94 H 03/31/23 11:29 Pulse Ox 98 03/31/23 11:29 O2 Del Method Room Air 03/31/23 11:29 Allergies Allergy/AdvReac Type Severity Reaction Status Date / Time No Known Allergies Allergy Verified 03/29/23 09:21 Home Medications Medication Instructions Recorded Confirmed Type adalimumab 40 mg/0.4 mL 40 mg subcut [id number] 06/20/21 03/31/23 History subcutaneous pen kit (Humira(CF) Pen) Laboratory Tests 03/31/23 11:40 PT Pending INR Pending APTT Pending Patient hx anesthesia problems: none Family hx anesthesia problems: none Results Review: All pre-operative results and documents have been reviewed as part of the pre- operative evaluation. [facility] Past Medical History Medical History HTN (hypertension) Kidney stone Obesity Rheumatoid arthritis Surgical History Surgical History H/O wrist surgery History of foot surgery Social History Social History Smoking status: Never smoker Alcohol intake: current Alcohol use details: RARE Substance use: never Substance use type: does not use Lack of Transportation: No Lack of Food: Never True Current Housing: I Have Housing Concerned About Future Housing: No Difficulty Paying Gas/Electric Bills: No Difficulty Paying for Meds: No Currently Unemployed: No Education: Associate Degree Difficulty w/ Childcare or Family Care: No Living arrangements: with family Spiritual care concerns: No Anes - Eval Final PreProcedure Day of Procedure 03/31/23 12:01 Patient weight: overweight Heart: regular rate and rhythm Lungs: clear to auscultation Airway: Mallampati scale class II Neurological: alert and oriented Last oral intake: >/= 8 hours ASA classification: II Emergent: no Anesthetic plan: proceed Anesthesia type and monitoring: general LMA and standard monitoring Results Review: All pre-operative results and documents have been reviewed as part of the pre- operative evaluation. Informed Consent: The patient's anesthetic plan and its attendant risks and benefits were discussed with the patient/family/POA. Questions were solicited and answers provided to the satisfaction of the patient/family/POA.
[2023-03-31 12:13] LABS: INR 1.1; Partial Thromboplastin Time 28.6 SECONDS (22.3-36.8); Prothrombin Time 14.3 Seconds (11.1-14.7)
--- NOTE | 2023-03-31 13:16 | W.PM.PROC2 ---
Procedure Note - Detailed Date of Procedure 03/31/23 Pre-op Diagnosis Rt Ureteral Stone Post-op Diagnosis Same Procedure Performed Right ESWL Surgeon Timoteo Samuels MD Anesthesia General Description of Procedure The patient was brought to the operative suite where he was placed in the supine position on the Dornier lithotripsy table. The focal point of the lithotripter was placed at a 9mm right proximal ureteral calculus. A total of 3000 shocks were delivered at a power setting up to 5. There appeared to be good fragmentation of the stone. The patient tolerated the procedure well and was taken to the recovery room in good condition. Estimated Blood Loss 0 Drains No Packing No Pathology None sent Complications No immediate complications Condition Stable
[2023-03-31] MEDS: ceFAZolin 2 GM/D5W 50 ML 2 GM/50 ML BAG IVPB (13:18)
[2023-03-31] MEDS: oxyCODONE HCL (*CRX) 5 MG TAB IR PO (15:15)
== END 2023-03-31 15:53 | disposition home or self-care (01) ==
PROVIDERS: Visit Provider Urology
PROC: (CPT 50590; principal; 2023-03-31 13:00)
DX: N20.1 Calculus of ureter (principal); I10 Essential (primary) hypertension
CPT/HCPCS: 50590; 36415; 74018; 85610; 85730; A9270; J0690; J1100; J2250; J2405; J2704; J3010; J7120

== ENCOUNTER 2023-04-07 08:33 | Outpatient (CLI) | payer BC, SELFPAY ==
--- NOTE | ~2023-04-07 | XR_ITS ---
Supine and upright views of the abdomen Clinical history: Right ureteral stone, recent stent COMPARISON: 03/31/2023 Findings: Bowel gas pattern is nonspecific. No evidence for obstruction or free air. Right ureteral s tent remains in place. Previously identified right ureteral stone no longer seen. Possible small ston es in the right kidney. Osseous structures are intact. Impression: Right ureteral stent present. Previously noted right ureteral stone no longer visualized. Suspected small right renal stones. Reviewed, dictated and finalized at location M. UNDER Impression: Right ureteral stent present. Previously noted right ureteral stone no longer v isualized. Suspected small right renal stones.
== END 2023-04-07 08:34 | disposition home or self-care (01) ==
LOC: ANHIMG 08:35
PROVIDERS: Visit Provider Urology
DX: N20.1 Calculus of ureter (principal); Z96.0 Presence of urogenital implants
CPT/HCPCS: 74018

== ENCOUNTER 2023-05-26 10:39 | Outpatient (CLI) | payer BC, SELFPAY ==
--- NOTE | ~2023-05-26 | XR_ITS ---
EXAMINATION: XR abdomen/kub 1V INDICATION: Right ureteral stone TECHNIQUE: Supine views of the abdomen were obtained on three radiographs. COMPARISON: 04/07/2023 FINDINGS: The right internal ureteral stent has been removed. Bowel contents project over the kidneys limiting sensitivity for renal stones. No definite urolithiasis is identified. The bowel gas pattern is normal. IMPRESSION: 1. Right internal ureteral stent removal. No definite urolithiasis identified. Reviewed, dictated and finalized at location B. OWNER OPERATOR
--- NOTE | ~2023-05-26 | US_ITS ---
EXAMINATION: US retroperitoneal comp DATE: 05/26/2023 11:25 INDICATION: History of right ureteral stone TECHNIQUE: Multiple grayscale and Doppler ultrasound images of the kidneys were obtained. COMPARISON: CT, 03/26/2023 FINDINGS: The right kidney measures 11.3 x 5.2 x 5.8 cm. There is a 2.1 cm cyst in the mid kidney. Th e left kidney measures 11.0 x 4.9 x 5.4 cm. The kidneys demonstrate normal parenchymal echogenicity. There is no hydronephrosis. The bladder is normal. IMPRESSION: 1. Unremarkable kidneys without hydronephrosis. Reviewed, dictated and finalized at location B. MAKER
== END 2023-05-26 10:40 | disposition home or self-care (01) ==
PROVIDERS: Visit Provider Urology
DX: N20.1 Calculus of ureter (principal)
CPT/HCPCS: 74018; 76770

== ENCOUNTER 2024-02-16 08:59 | Outpatient (CLI) | payer BC, SELFPAY ==
--- NOTE | ~2024-02-16 | XR_ITS ---
EXAMINATION: XR abdomen/kub 1V DATE: 02/16/2024 09:20 INDICATION: Right ureteral stone. TECHNIQUE: A supine view of the abdomen on 2 radiographs was obtained. COMPARISON: Abdomen radiographs 05/26/2023, CT abdomen and pelvis 03/26/2023 FINDINGS: There is a 3 mm stone in right kidney. There is a 3 mm stone in left kidney. There are no d ilated loops of bowel. IMPRESSION: 1. Bilateral kidney stones. Reviewed, dictated and finalized at location B. IMPRESSION: 1. Bilateral kidney stones.
--- NOTE | ~2024-02-16 | US_ITS ---
EXAMINATION: US retroperitoneal comp DATE: 02/16/2024 09:37 INDICATION: Right ureteral stone. TECHNIQUE: Multiple ultrasound grayscale images of the kidneys were obtained. COMPARISON: CT abdomen pelvis 03/26/2023 FINDINGS: The right kidney measures 12.4 x 5.1 x 5.6 cm. The left kidney measures 10.7 x 5.9 x 5.7 cm. The kidn eys demonstrate normal parenchymal echogenicity. There is a 2.5 cm cyst in right kidney. There is no hydronephrosis. The bladder is normal. IMPRESSION: 1. Normal kidney sizes. No hydronephrosis. Reviewed, dictated and finalized at location B.
== END 2024-02-16 09:00 | disposition home or self-care (01) ==
PROVIDERS: Visit Provider Urology
DX: N20.0 Calculus of kidney (principal)
CPT/HCPCS: 74018; 76770